=== PATIENT | female | born 1955 | race African-American/Black ===

== ENCOUNTER 2020-11-12 14:28 | Emergency (ER) | payer OTHER ==
[~2020-11-12] VITALS: Ht 160 cm; Wt 83.6 kg
[2020-11-12] MEDS ORDERED: NORV5TAB PO ×2 (14:54→15:27)
[2020-11-12] MEDS ORDERED: ALBU8.5H INH ×2 (14:54→15:27)
[2020-11-12] MEDS ORDERED: SIMV20TA22 PO (15:27)
[2020-11-12] MEDS ORDERED: HYDR12.55 PO (15:27)
[2020-11-12] MEDS ORDERED: CLOP75TA2 PO (15:27)
[2020-11-12 16:03] VITALS: BP 229/110
== END 2020-11-12 16:05 | disposition home or self-care (01) ==
LOC: M ED 14:28
DX: Z76.0 Encounter for issue of repeat prescription (principal); I10 Essential (primary) hypertension; J44.9 Chronic obstructive pulmonary disease, unspecified; F17.210 Nicotine dependence, cigarettes, uncomplicated; Z88.0 Allergy status to penicillin

== ENCOUNTER 2024-02-06 10:39 | Emergency (ER) | payer MEDICAID, MEDICARE, OTHER ==
[~2024-02-06] VITALS: Ht 160 cm; Wt 74.5 kg
[~2024-02-06 10:39] MED LIST: ALBU8.5H INH; CLOP75TA2 PO; HYDR12.55 PO; NORV5TAB PO; SIMV20TA22 PO
[2024-02-06] MEDS ORDERED: ATOR40TA75 PO ×2 (10:57→13:35)
[2024-02-06] MEDS ORDERED: HYDR-3490 PO ×2 (10:57→13:35)
[2024-02-06] MEDS ORDERED: METF500T13 PO (10:59)
[2024-02-06] MEDS ORDERED: LOSA100T46 PO ×2 (10:59→13:35)
[2024-02-06] MEDS: LOSARTAN 50MG TABLET PO ONE (11:34)
[2024-02-06 11:35] VITALS: BP 202/100
[2024-02-06] MEDS: amLODIPine 5 MG TAB PO ONE (11:35)
[2024-02-06 12:58] VITALS: BP 176/80; O2SAT 100
[2024-02-06 13:00] LABS: BASO % 0.5 % (0.0-1.0); EOS # 0.1 10^3/uL (0.0-0.5); EOS % 1.3 % (0.0-3.0); LYMPH # 4.3 10^3/uL (1.5-5.0); LYMPH % 49.8 % (24.0-44.0); MEAN CORPUSCULAR HEMOGLOBIN 30.7 pg (27.0-33.0); MEAN CORPUSCULAR HGB CONC 33.3 g/dl (32.0-36.5); MEAN CORPUSCULAR VOLUME 92.2 fl (80.0-96.0); MONO # 0.6 10^3/uL (0.0-0.8); MONO % 7.2 % (2.0-8.0); NEUTROPHILS # 3.5 10^3/uL (1.5-8.5); NEUTROPHILS % 40.7 % (36.0-66.0); PLATELET COUNT, AUTOMATED 215 10^3/uL (150-450); RED BLOOD COUNT 4.23 10^6/uL (4.00-5.40); WHITE BLOOD COUNT 8.6 10^3/uL (4.0-10.0)
[2024-02-06 13:04] LABS: CK-MB VALUE MASS < 1.0 NG/ML (<3.6); CPK CREATINE PHOSPHOKINASE 87 U/L (34-145); MB/CK RELATIVE INDEX 1.14 (< OR =4)
[2024-02-06] MEDS ORDERED: METF-838 PO (13:35)
[2024-02-06] MEDS ORDERED: ALBU8.5H INH (13:35)
[2024-02-06] MEDS ORDERED: NORV5TAB PO (13:35)
[2024-02-06] MEDS ORDERED: CLOP75TA2 PO (13:35)
[2024-02-06] MEDS ORDERED: ASPI81CH33 PO (13:35)
[2024-02-06 13:42] VITALS: TEMP 97.1
== END 2024-02-06 13:43 | disposition home or self-care (01) ==
LOC: M ED 10:39
DX: Z76.0 Encounter for issue of repeat prescription (principal); R00.1 Bradycardia, unspecified; E11.9 Type 2 diabetes mellitus without complications; J44.9 Chronic obstructive pulmonary disease, unspecified; Z87.891 Personal history of nicotine dependence; Z88.0 Allergy status to penicillin; Z79.51 Long term (current) use of inhaled steroids; Z79.1 Long term (current) use of non-steroidal anti-inflammatories (NSAID); Z79.84 Long term (current) use of oral hypoglycemic drugs; Z79.899 Other long term (current) drug therapy

== ENCOUNTER → 2024-02-11 | Outpatient (REF) | payer MEDICARE, MEDICAID ==
[~2024-02-11] MED LIST changes: +ASPI81CH33 PO; +ATOR40TA75 PO; +HYDR-3490 PO; +LOSA100T46 PO; +METF-838 PO; +METF500T13 PO
[2024-02-11 14:50] LABS: ALBUMIN 3.8 G/DL (3.2-5.2); ALKALINE PHOSPHATASE 103 U/L (35-104); ALT/SGPT 21 U/L (7.0-40); AST/SGOT 9 U/L (<34); BILIRUBIN,TOTAL 1.1 MG/DL (0.3-1.2); BLOOD UREA NITROGEN 20 MG/DL (9-23); CALCIUM LEVEL 9.7 MG/DL (8.3-10.6); CARBON DIOXIDE LEVEL 29 MMOL/L (20-31); CHLORIDE LEVEL 103 MMOL/L (98-107); CHOLESTEROL LEVEL 151 MG/DL (<200); CHOLESTEROL RISK RATIO 2.12 (<5); CREATININE FOR GFR 0.75 MG/DL (0.55-1.30); GLOMERULAR FILTRATION RATE > 60.0 (>45); GLUCOSE, FASTING 154 MG/DL (74-106); HDL CHOLESTEROL 71.1 MG/DL (>40); LDL CHOLESTEROL 72.1 MG/DL (<100); NON-HDL-C 79.9 MG/DL; POTASSIUM SERUM 3.6 MMOL/L (3.5-5.1); SODIUM LEVEL 141 MMOL/L (136-145); TOTAL PROTEIN 7.6 G/DL (5.7-8.2); TRIGLYCERIDES LEVEL 39 MG/DL (<150)
[2024-02-11 14:52] LABS: THYROID STIMULATING HORMONE 0.452 uIU/ML (0.55-4.78)
[2024-02-11 15:34] LABS: HEMOGLOBIN A1c 5.6 % (4.0-6.0)
== END ==
LOC: M LAB REF 12:38
PROVIDERS: ATTEND Physician Assistant
DX: E66.9 Obesity, unspecified (principal); E55.9 Vitamin D deficiency, unspecified; E07.9 Disorder of thyroid, unspecified

== ENCOUNTER → 2024-03-07 | Outpatient (CLI) | payer MEDICAID, MEDICARE | LOC: M WHC 13:10 | PROVIDERS: ATTEND Physician Assistant | DX: Z12.31 Encounter for screening mammogram for malignant neoplasm of breast (principal); Z13.820 Encounter for screening for osteoporosis; M81.0 Age-related osteoporosis without current pathological fracture ==

== ENCOUNTER → 2024-05-25 | Outpatient (REF) | payer MEDICARE ==
[2024-05-25 18:50] LABS: BLOOD UREA NITROGEN 17 MG/DL (9-23); CALCIUM LEVEL 8.5 MG/DL (8.3-10.6); CARBON DIOXIDE LEVEL 30 MMOL/L (20-31); CHLORIDE LEVEL 101 MMOL/L (98-107); GLOMERULAR FILTRATION RATE > 60.0 (>45); GLUCOSE, FASTING 176 MG/DL (74-106); POTASSIUM SERUM 3.3 MMOL/L (3.5-5.1); SODIUM LEVEL 139 MMOL/L (136-145); THYROID STIMULATING HORMONE 0.155 uIU/ML (0.55-4.78)
== END ==
LOC: M LAB REF 16:34
PROVIDERS: ATTEND Physician Assistant
DX: I10 Essential (primary) hypertension (principal); E04.9 Nontoxic goiter, unspecified

== ENCOUNTER → 2024-06-23 | Outpatient (CLI) | payer MEDICARE | LOC: M WHC 14:48 | PROVIDERS: ATTEND Physician Assistant | DX: E04.2 Nontoxic multinodular goiter (principal) ==

== ENCOUNTER → 2024-08-04 | Outpatient (CLI) | payer MEDICARE | LOC: M WHC 14:04 | PROVIDERS: ATTEND Psychiatry & Neurology Neurology | DX: E04.9 Nontoxic goiter, unspecified (principal) ==

== ENCOUNTER → 2024-08-15 | Outpatient (REF) | payer MEDICARE, MEDICAID ==
[2024-08-15 18:41] LABS: FREE T4 0.96 NG/DL (0.89-1.76)
[2024-08-15 18:42] LABS: THYROID STIMULATING HORMONE 0.269 uIU/ML (0.55-4.78)
[2024-08-15 18:50] LABS: ALBUMIN 3.7 G/DL (3.2-5.2); BILIRUBIN,TOTAL 0.7 MG/DL (0.3-1.2); CREATININE FOR GFR 1.06 MG/DL (0.55-1.30); GLOMERULAR FILTRATION RATE 57.6 (>45); POTASSIUM SERUM 3.1 MMOL/L (3.5-5.1); TOTAL PROTEIN 7.7 G/DL (5.7-8.2)
[2024-08-15 19:11] LABS: HEMOGLOBIN A1c 6.5 % (4.0-6.0)
== END ==
LOC: M LAB REF 17:34
PROVIDERS: ATTEND Physician Assistant
DX: I10 Essential (primary) hypertension (principal); E04.9 Nontoxic goiter, unspecified; Z79.899 Other long term (current) drug therapy

== ENCOUNTER → 2024-10-25 | Outpatient (CLI) | payer MEDICARE, MEDICAID | LOC: M RAD 12:19 | PROVIDERS: ATTEND Physician Assistant | DX: G62.9 Polyneuropathy, unspecified (principal); I70.203 Unspecified atherosclerosis of native arteries of extremities, bilateral legs ==

== ENCOUNTER 2024-11-06 06:58 | Inpatient (IN) | payer MEDICARE, MEDICAID ==
[~2024-11-06] VITALS: Ht 160 cm; Wt 81.4 kg
[2024-11-06 07:58] LABS: BASO # 0.0 10^3/uL (0.0-0.2); BASO % 0.5 % (0.0-1.0); EOS # 0.2 10^3/uL (0.0-0.5); EOS % 2.4 % (0.0-3.0); LYMPH # 1.7 10^3/uL (1.5-5.0); LYMPH % 26.3 % (24.0-44.0); MONO # 0.4 10^3/uL (0.0-0.8); MONO % 6.6 % (2.0-8.0); NEUTROPHILS # 4.2 10^3/uL (1.5-8.5); NEUTROPHILS % 63.9 % (36.0-66.0); PLATELET COUNT, AUTOMATED 259 10^3/uL (150-450)
[2024-11-06] MEDS ORDERED: ISOVUE-370 76% 100 ML VIAL As Ordered ONE (08:06)
[2024-11-06 08:09] LABS: INR 1.02
[2024-11-06 08:29] VITALS: BP 192/84; TEMP 97.7; O2SAT 100
[2024-11-06 08:46] LABS: CK-MB VALUE MASS < 1.0 NG/ML (<3.6)
[2024-11-06 08:48] LABS: ALT/SGPT 21 U/L (7.0-40); AST/SGOT 15 U/L (<34); CALCIUM LEVEL 9.1 MG/DL (8.3-10.6); CARBON DIOXIDE LEVEL 29 MMOL/L (20-31); CHLORIDE LEVEL 106 MMOL/L (98-107); CPK CREATINE PHOSPHOKINASE 66 U/L (34-145); CREATININE FOR GFR 0.77 MG/DL (0.55-1.30); GLOMERULAR FILTRATION RATE 84.0 (>45); POTASSIUM SERUM 3.3 MMOL/L (3.5-5.1); SODIUM LEVEL 145 MMOL/L (136-145)
[2024-11-06 08:49] LABS: FREE T4 0.99 NG/DL (0.89-1.76)
[2024-11-06 09:04] VITALS: BP 217/100; TEMP 97.7
[2024-11-06 10:02] LABS: CK-MB VALUE MASS < 1.0 NG/ML (<3.6)
[2024-11-06 10:12] LABS: KETONE, URINE AUTO RFX NEGATIVE (NEGATIVE); LEUKOCYTE ESTERASE UR AUTO RFX NEGATIVE (NEGATIVE); MUCUS, URINE RFX SMALL (NEGATIVE); NITRITE, URINE AUTO RFX NEGATIVE (NEGATIVE); RBC, URINE AUTO RFX 0 /HPF (0-3); SQUAM EPITHELIAL CELL UR AURFX 5 /HPF (0-6); WBC, URINE AUTO RFX 0 /HPF (0-3)
[2024-11-06 10:15] LABS: CPK CREATINE PHOSPHOKINASE 70 U/L (34-145)
[2024-11-06] MEDS ORDERED: [UNRECOGNIZED DRUG - CODE] PO (14:28)
[2024-11-06] MEDS ORDERED: METF-838 PO (14:28)
[2024-11-06] MEDS ORDERED: AMLO1TAB25 PO (14:28)
[2024-11-06] MEDS ORDERED: BUDE10.7 INH (14:28)
[2024-11-06] MEDS ORDERED: DAPA10TA5 PO (14:28)
[2024-11-06] MEDS ORDERED: PROA1AER2 INH (14:28)
[2024-11-06] MEDS ORDERED: ASPI81CH48 PO (14:28)
[2024-11-06] MEDS ORDERED: HOME MED LIST COMPLETE! XX SCH (14:30)
[2024-11-06] MEDS ORDERED: GLUCOSE 4 GM CHEW PO PRN (14:40)
[2024-11-06] MEDS ORDERED: GLUCAGON INJ 1 MG VIAL SC PRN (14:40)
[2024-11-06] MEDS ORDERED: DEXTROSE 50% 50 ML SYRINGE IV PRN (14:40)
[2024-11-06] MEDS: LOSARTAN 25 MG TAB PO ONE (14:50)
[2024-11-06 15:52] VITALS: BP 165/83; TEMP 97.8; O2SAT 99
[2024-11-06 16:02] LABS: ESTIMATED AVERAGE GLUCOSE 148.0 MG/DL (60-110)
[2024-11-06 16:53] LABS: PROLACTIN 14.28 NG/ML
[2024-11-06 16:57] VITALS: BP 170/90; TEMP 98.3; O2SAT 98
[2024-11-06] MEDS: ASPIRIN 81 MG CHEWABLE TABLET PO SCH (17:03)
[2024-11-06] MEDS: POTASSIUM CHLORIDE 10MEQ SR TABLET PO ONE (17:03)
[2024-11-06] MEDS: amLODIPine 10 MG TAB PO SCH (17:03)
[2024-11-06] MEDS: ENOXAPARIN 40 MG/0.4 ML SYRINGE (J1650 PER 10MG) SC ONE (17:04)
[2024-11-06] MEDS: LOSARTAN 50 MG TABLET PO SCH (17:04)
[2024-11-06] MEDS: DAPAGLIFLOZIN PROPANEDIOL 10 MG TABLET PO SCH (17:04)
[2024-11-06] MEDS: ATORVASTATIN 20 MG TAB PO SCH (17:05)
[2024-11-06] MEDS: INSULIN LISPRO (NovoLOG) PER UNIT SC SCH ×2 (17:16→20:55)
[2024-11-06 19:30] VITALS: BP 140/82; TEMP 97.7; O2SAT 96
[2024-11-07] VITALS (8 sets, daily range): BP systolic 144–202; BP diastolic 70–104; TEMP 96.8–98.5; O2SAT 94–98
[2024-11-07 06:06] LABS: PLATELET COUNT, AUTOMATED 289 10^3/uL (150-450)
[2024-11-07 06:34] LABS: CALCIUM LEVEL 8.8 MG/DL (8.3-10.6); CARBON DIOXIDE LEVEL 29.0 MMOL/L (20-31); CHLORIDE LEVEL 106.0 MMOL/L (98-107); CHOLESTEROL LEVEL 127.0 MG/DL (<200); CHOLESTEROL RISK RATIO 3.35 (<5); CREATININE FOR GFR 0.82 MG/DL (0.55-1.30); GLOMERULAR FILTRATION RATE 77.9 (>45); LDL CHOLESTEROL 75.4 MG/DL (<100); NON-HDL-C 89.2 MG/DL; POTASSIUM SERUM 3.6 MMOL/L (3.5-5.1); SODIUM LEVEL 145.0 MMOL/L (136-145); TRIGLYCERIDES LEVEL 69.0 MG/DL (<150)
[2024-11-07] MEDS: ENOXAPARIN 40 MG/0.4 ML SYRINGE (J1650 PER 10MG) SC SCH (08:12)
[2024-11-08 00:20] VITALS: BP 140/88; TEMP 96.8; O2SAT 99
[2024-11-08 04:09] VITALS: BP 140/90; TEMP 97; O2SAT 100
[2024-11-08 05:55] LABS: PLATELET COUNT, AUTOMATED 291 10^3/uL (150-450)
[2024-11-08 06:25] LABS: CALCIUM LEVEL 8.6 MG/DL (8.3-10.6); CARBON DIOXIDE LEVEL 29.0 MMOL/L (20-31); CHLORIDE LEVEL 105.0 MMOL/L (98-107); CREATININE FOR GFR 0.81 MG/DL (0.55-1.30); GLOMERULAR FILTRATION RATE 79.0 (>45); POTASSIUM SERUM 3.5 MMOL/L (3.5-5.1); SODIUM LEVEL 144.0 MMOL/L (136-145)
[2024-11-08 07:51] VITALS: BP 164/72; TEMP 97.3; O2SAT 97
[2024-11-08 09:24] VITALS: BP 164/72
[2024-11-08] MEDS: POTASSIUM CHLORIDE 10MEQ SR TABLET PO ONE (11:16)
[2024-11-08 11:30] VITALS: BP 134/90; TEMP 97.3; O2SAT 97
[2024-11-08] MEDS ORDERED: EZET10TA21 PO (14:44)
== END 2024-11-08 16:24 | disposition home or self-care (01) | DRG 305 ==
LOC: M ED 06:58 → M ED INP 14:19 → M PCU 15:34
PROVIDERS: ADMIT General Practice; ATTEND General Practice
PROC: B246ZZZ Ultrasonography of Right and Left Heart (ICD-10-PCS; principal; 2024-11-06)
DX: I16.9 Hypertensive crisis, unspecified (principal); I69.354 Hemiplegia and hemiparesis following cerebral infarction affecting left non-dominant side; I67.4 Hypertensive encephalopathy; E11.9 Type 2 diabetes mellitus without complications; I10 Essential (primary) hypertension; J45.909 Unspecified asthma, uncomplicated; J44.9 Chronic obstructive pulmonary disease, unspecified; F17.210 Nicotine dependence, cigarettes, uncomplicated; L65.9 Nonscarring hair loss, unspecified; E78.5 Hyperlipidemia, unspecified; R42 Dizziness and giddiness; E66.9 Obesity, unspecified; R26.89 Other abnormalities of gait and mobility; Z79.82 Long term (current) use of aspirin; Z79.84 Long term (current) use of oral hypoglycemic drugs; Z79.899 Other long term (current) drug therapy; Z88.0 Allergy status to penicillin; Z68.32 Body mass index [BMI] 32.0-32.9, adult; Z95.828 Presence of other vascular implants and grafts

== ENCOUNTER → 2024-11-16 | Outpatient (CLI) | payer MEDICARE, MEDICAID ==
[~2024-11-16] MED LIST changes: +AMLO1TAB25 PO; +ASPI81CH48 PO; +BUDE10.7 INH; +DAPA10TA5 PO; +EZET10TA57 PO; +PROA1AER2 INH; +[UNRECOGNIZED DRUG - CODE] PO
[2024-11-16 14:46] LABS: CALCIUM LEVEL 9.4 MG/DL (8.3-10.6); CARBON DIOXIDE LEVEL 29.0 MMOL/L (20-31); CHLORIDE LEVEL 105.0 MMOL/L (98-107); CREATININE FOR GFR 0.84 MG/DL (0.55-1.30); GLOMERULAR FILTRATION RATE 75.7 (>45); MAGNESIUM LEVEL 1.7 MG/DL (1.8-2.4); PHOSPHORUS LEVEL 2.8 MG/DL (2.4-5.1); POTASSIUM SERUM 3.5 MMOL/L (3.5-5.1); SODIUM LEVEL 146.0 MMOL/L (136-145)
== END ==
LOC: M EKG 12:03
PROVIDERS: ATTEND Internal Medicine Cardiovascular Disease
DX: R06.02 Shortness of breath (principal); I11.9 Hypertensive heart disease without heart failure; R60.0 Localized edema; I49.3 Ventricular premature depolarization

== ENCOUNTER → 2024-11-23 | Outpatient (CLI) | payer MEDICARE, MEDICAID ==
[~2024-11-23] MED LIST changes: +EZET10TA21 PO; -EZET10TA57 PO
[2024-11-23 14:42] LABS: CALCIUM LEVEL 9.7 MG/DL (8.3-10.6); CARBON DIOXIDE LEVEL 33.0 MMOL/L (20-31); CHLORIDE LEVEL 99.0 MMOL/L (98-107); CREATININE FOR GFR 1.01 MG/DL (0.55-1.30); GLOMERULAR FILTRATION RATE 60.6 (>45); MAGNESIUM LEVEL 1.7 MG/DL (1.8-2.4); PHOSPHORUS LEVEL 3.6 MG/DL (2.4-5.1); POTASSIUM SERUM 3.3 MMOL/L (3.5-5.1); SODIUM LEVEL 141.0 MMOL/L (136-145)
== END ==
LOC: M LAB 11:55
PROVIDERS: ATTEND Internal Medicine Cardiovascular Disease
DX: R06.02 Shortness of breath (principal); I49.3 Ventricular premature depolarization; K60.0 Acute anal fissure; I10 Essential (primary) hypertension; I51.7 Cardiomegaly

== ENCOUNTER 2024-12-07 10:22 | Emergency (ER) | payer MEDICARE, MEDICAID ==
[~2024-12-07 10:22] MED LIST changes: -EZET10TA21 PO; +EZET10TA57 PO
[2024-12-07 13:05] VITALS: BP 134/64; TEMP 97.8; O2SAT 98
== END 2024-12-07 13:06 | disposition home or self-care (01) ==
LOC: EDBD 10:22 → M ED 12:26
DX: M75.32 Calcific tendinitis of left shoulder (principal); I25.119 Atherosclerotic heart disease of native coronary artery with unspecified angina pectoris; E11.9 Type 2 diabetes mellitus without complications; I10 Essential (primary) hypertension; Z88.0 Allergy status to penicillin; Z79.51 Long term (current) use of inhaled steroids; Z79.1 Long term (current) use of non-steroidal anti-inflammatories (NSAID); Z79.84 Long term (current) use of oral hypoglycemic drugs; Z79.899 Other long term (current) drug therapy

== ENCOUNTER → 2024-12-19 | Outpatient (REF) | payer MEDICARE, MEDICAID ==
[2024-12-19 12:49] LABS: CALCIUM LEVEL 9.6 MG/DL (8.3-10.6); CARBON DIOXIDE LEVEL 28.0 MMOL/L (20-31); CHLORIDE LEVEL 101.0 MMOL/L (98-107); CREATININE FOR GFR 1.41 MG/DL (0.55-1.30); GLOMERULAR FILTRATION RATE 40.6 (>45); MAGNESIUM LEVEL 1.7 MG/DL (1.8-2.4); PHOSPHORUS LEVEL 4.0 MG/DL (2.4-5.1); POTASSIUM SERUM 3.6 MMOL/L (3.5-5.1); SODIUM LEVEL 140.0 MMOL/L (136-145)
== END ==
LOC: M LAB REF 10:55
PROVIDERS: ATTEND Internal Medicine Cardiovascular Disease
DX: I10 Essential (primary) hypertension (principal); I49.3 Ventricular premature depolarization; R94.31 Abnormal electrocardiogram [ECG] [EKG]

== ENCOUNTER → 2025-01-02 | Outpatient (CLI) | payer MEDICARE, MEDICAID ==
[2025-01-02 14:54] LABS: CALCIUM LEVEL 9.0 MG/DL (8.3-10.6); CARBON DIOXIDE LEVEL 28.0 MMOL/L (20-31); CHLORIDE LEVEL 106.0 MMOL/L (98-107); CREATININE FOR GFR 0.91 MG/DL (0.55-1.30); GLOMERULAR FILTRATION RATE 68.7 (>45); POTASSIUM SERUM 4.4 MMOL/L (3.5-5.1); SODIUM LEVEL 144.0 MMOL/L (136-145)
== END ==
LOC: M LAB 09:59
PROVIDERS: ATTEND Physician Assistant
DX: I10 Essential (primary) hypertension (principal)

== ENCOUNTER → 2025-01-10 | Outpatient (CLI) | payer MEDICARE, MEDICAID ==
[2025-01-10 14:10] LABS: CALCIUM LEVEL 9.4 MG/DL (8.3-10.6); CARBON DIOXIDE LEVEL 26.0 MMOL/L (20-31); CHLORIDE LEVEL 106.0 MMOL/L (98-107); CREATININE FOR GFR 1.14 MG/DL (0.55-1.30); GLOMERULAR FILTRATION RATE 52.4 (>45); POTASSIUM SERUM 4.5 MMOL/L (3.5-5.1); SODIUM LEVEL 141.0 MMOL/L (136-145)
== END ==
LOC: M LAB 12:43
PROVIDERS: ATTEND Physician Assistant
DX: I10 Essential (primary) hypertension (principal)

== ENCOUNTER → 2025-01-22 | Outpatient (CLI) | payer MEDICARE, MEDICAID | LOC: M SLEEP HO 12-19 10:49 | PROVIDERS: ATTEND Internal Medicine Cardiovascular Disease | DX: I27.81 Cor pulmonale (chronic) (principal); G47.33 Obstructive sleep apnea (adult) (pediatric) ==

== ENCOUNTER → 2025-02-14 | Outpatient (REF) | payer MEDICARE, MEDICAID ==
[2025-02-14 14:27] LABS: ALT/SGPT 15.0 U/L (7.0-40); AST/SGOT 11.0 U/L (<34); CALCIUM LEVEL 9.3 MG/DL (8.3-10.6); CARBON DIOXIDE LEVEL 23.0 MMOL/L (20-31); CHLORIDE LEVEL 104.0 MMOL/L (98-107); CREATININE FOR GFR 1.31 MG/DL (0.55-1.30); FREE T4 1.12 NG/DL (0.89-1.76); GLOMERULAR FILTRATION RATE 44.4 (>45); MAGNESIUM LEVEL 1.7 MG/DL (1.8-2.4); POTASSIUM SERUM 4.7 MMOL/L (3.5-5.1); SODIUM LEVEL 139.0 MMOL/L (136-145)
[2025-02-14 14:38] LABS: ESTIMATED AVERAGE GLUCOSE 148.0 MG/DL (60-110)
== END ==
LOC: M LAB REF 12:44
PROVIDERS: ATTEND Physician Assistant
DX: E11.9 Type 2 diabetes mellitus without complications (principal); E83.42 Hypomagnesemia

== ENCOUNTER → 2025-02-22 | Outpatient (REF) | payer MEDICARE, MEDICAID ==
[2025-02-22 09:46] LABS: APPEARANCE, URINE HAZY (CLEAR); BACTERIA, URINE AUTO 1+ (NEGATIVE); BILIRUBIN, URINE AUTO NEGATIVE (NEGATIVE); BLOOD, URINE BLOOD NEGATIVE (NEGATIVE); GLUCOSE, URINE (UA) AUTO NEGATIVE (NEGATIVE); KETONE, URINE AUTO NEGATIVE (NEGATIVE); LEUKOCYTE ESTERASE, URINE AUTO NEGATIVE (NEGATIVE); MUCUS, URINE SMALL (NEGATIVE); NITRITE, URINE AUTO NEGATIVE (NEGATIVE); PROTEIN, URINE AUTO NEGATIVE (NEGATIVE); RBC, URINE AUTO 0 /HPF (0-3); SPECIFIC GRAVITY URINE AUTO 1.013 (1.002-1.035); SQUAMOUS EPITHELIAL CELL UR AU 6 /HPF (0-6); UROBILINOGEN, URINE AUTO 0.2 mg/dL (0.0-2.0); WBC, URINE AUTO 0 /HPF (0-3)
[2025-02-22 10:13] LABS: CREATININE, URINE 75.6 MG/DL; MALB URINE SIEMENS < 3.0 MG/L
== END ==
LOC: M LAB REF 09:12
PROVIDERS: ATTEND Physician Assistant
DX: E11.9 Type 2 diabetes mellitus without complications (principal)